=== PATIENT | male | born 1950 | race Caucasian/White ===

== ENCOUNTER 2018-03-14 16:00 | Emergency (ER) | payer MEDICARE, OTHER ==
[2018-03-14] MEDS: LIDOCAINE 1% (MDV) 10 ML INJ INJ (16:36)
[2018-03-14] MEDS: DIPHTH/TET/ACEL PERTUSS (ADULT) 0.5 ML VIAL IM* (16:59)
== END 2018-03-14 17:14 | disposition home or self-care (01) ==
LOC: FTE 16:00
DX: S61.411A Laceration without foreign body of right hand, initial encounter (principal); I10 Essential (primary) hypertension; E11.9 Type 2 diabetes mellitus without complications; W26.8XXA Contact with other sharp object(s), not elsewhere classified, initial encounter; Y92.9 Unspecified place or not applicable; Z23 Encounter for immunization; Z79.01 Long term (current) use of anticoagulants; Z79.4 Long term (current) use of insulin
CPT/HCPCS: 12002; 90471; 90715; 99283-25

== ENCOUNTER 2018-03-16 07:53 | Emergency (ER) | payer MEDICARE, OTHER ==
[2018-03-16] MEDS: CLINDAMYCIN 300 MG INJ IM (09:13)
== END 2018-03-16 10:05 | disposition home or self-care (01) ==
LOC: FTE 07:53
DX: Z48.01 Encounter for change or removal of surgical wound dressing (principal); I10 Essential (primary) hypertension; E11.9 Type 2 diabetes mellitus without complications; Z79.4 Long term (current) use of insulin
CPT/HCPCS: 96372; 99284-25

== ENCOUNTER 2018-03-18 07:22 | Emergency (ER) | payer MEDICARE, OTHER | END 2018-03-18 08:34 | disposition home or self-care (01) | LOC: FTE 07:22 | DX: Z48.01 Encounter for change or removal of surgical wound dressing (principal); E11.9 Type 2 diabetes mellitus without complications; I10 Essential (primary) hypertension; Z79.4 Long term (current) use of insulin | CPT/HCPCS: 99281 ==

== ENCOUNTER 2018-03-20 07:24 | Emergency (ER) | payer MEDICARE, OTHER | END 2018-03-20 08:17 | disposition home or self-care (01) | LOC: FTE 07:24 | DX: Z48.01 Encounter for change or removal of surgical wound dressing (principal); I10 Essential (primary) hypertension; E11.9 Type 2 diabetes mellitus without complications; Z79.01 Long term (current) use of anticoagulants; Z79.4 Long term (current) use of insulin | CPT/HCPCS: 99281 ==

== ENCOUNTER 2018-03-26 07:34 | Emergency (ER) | payer MEDICARE, OTHER | END 2018-03-26 08:32 | disposition home or self-care (01) | LOC: FTE 08:32 | DX: Z48.02 Encounter for removal of sutures (principal); I10 Essential (primary) hypertension; E11.9 Type 2 diabetes mellitus without complications; Z79.01 Long term (current) use of anticoagulants; Z79.4 Long term (current) use of insulin | CPT/HCPCS: 99281 ==